=== PATIENT | female | born 1980 | race Caucasian/White ===

== ENCOUNTER 2018-05-30 21:04 | Emergency (ER) | payer MEDICAID ==
[~2018-05-30] VITALS: Ht 162.6 cm; Wt 97.1 kg
[2018-05-30 21:12] VITALS: Ht 162.6 cm; Wt 97.1 kg
[2018-05-30 23:05] VITALS: BP 115/69
== END 2018-05-30 23:05 | disposition home or self-care (01) ==
LOC: ED 21:04
DX: S63.501A Unspecified sprain of right wrist, initial encounter (principal); H10.9 Unspecified conjunctivitis; H01.006 Unspecified blepharitis left eye, unspecified eyelid; V49.88XA Car occupant (driver) (passenger) injured in other specified transport accidents, initial encounter; Y93.I9 Activity, other involving external motion; Y92.413 State road as the place of occurrence of the external cause; Y99.8 Other external cause status
CPT/HCPCS: A4570